=== PATIENT | male | born 1985 ===

== ENCOUNTER 2020-05-01 08:37 | Emergency (ER) | payer OTHER ==
[~2020-05-01] VITALS: Ht 180.3 cm; Wt 93.2 kg
[2020-05-01 08:44] VITALS: BP 132/85; PULSE 80; TEMP 98.7
[2020-05-01] MEDS ORDERED: CORTISPORIN OTI10 ML OT (09:01)
[2020-05-01] MEDS ORDERED: ZITHROMAX Z PA250 MG PO (09:01)
== END 2020-05-01 09:23 | disposition home or self-care (01) ==
LOC: COL.ER 08:37
DX: H60.91 Unspecified otitis externa, right ear (principal)